=== PATIENT | female | born 1960 | race Caucasian/White ===

== ENCOUNTER → 2023-10-26 15:17 | Outpatient (REF) | payer MEDICARE, SELFPAY | LOC: HWRAD 15:17 | PROVIDERS: ATTENDING PHYSICIAN Otolaryngology; FAMILY PHYSICIAN Family Medicine | DX: H71.91 Unspecified cholesteatoma, right ear (principal) | CPT/HCPCS: 70480 ==

== ENCOUNTER → 2024-01-05 13:20 | Outpatient (REF) | payer MEDICARE, SELFPAY | LOC: RAD 13:20 | PROVIDERS: ATTENDING PHYSICIAN Nurse Practitioner Family | DX: R05.3 Chronic cough (principal) | CPT/HCPCS: 71046 ==

== ENCOUNTER → 2024-01-18 06:51 | Outpatient (REF) | payer MEDICARE, SELFPAY ==
[2024-01-18 10:08] LABS: Blood Urea Nitrogen 28 mg/dl (7-17)
== END ==
LOC: HWRAD 06:51
PROVIDERS: ATTENDING PHYSICIAN Nurse Practitioner Family; FAMILY PHYSICIAN Family Medicine
DX: R06.02 Shortness of breath (principal); R00.0 Tachycardia, unspecified
CPT/HCPCS: 36415; 71275; 82565; 84520; Q9967

== ENCOUNTER → 2024-01-20 10:39 | Outpatient (REF) | payer MEDICARE, SELFPAY | LOC: REG 10:39 | PROVIDERS: ATTENDING PHYSICIAN Nurse Practitioner Family; FAMILY PHYSICIAN Family Medicine | DX: R05.3 Chronic cough (principal); R05.9 Cough, unspecified | CPT/HCPCS: 87070; 87205 ==

== ENCOUNTER → 2024-04-25 09:10 | Outpatient (REF) | payer MEDICARE, SELFPAY | LOC: HWRCS 09:10 | PROVIDERS: ATTENDING PHYSICIAN Internal Medicine Cardiovascular Disease; FAMILY PHYSICIAN Family Medicine | DX: R06.09 Other forms of dyspnea (principal); I49.3 Ventricular premature depolarization; R00.0 Tachycardia, unspecified | CPT/HCPCS: 93306 ==

== ENCOUNTER → 2024-05-10 15:01 | Outpatient (REF) | payer MEDICARE, SELFPAY | LOC: HWWDC 15:01 | PROVIDERS: ATTENDING PHYSICIAN Family Medicine; REFERRING PHYSICIAN Obstetrics & Gynecology | DX: Z12.31 Encounter for screening mammogram for malignant neoplasm of breast (principal) | CPT/HCPCS: 77063; 77067 ==

== ENCOUNTER 2024-07-15 06:26 | Day surgery (SDC) | payer MEDICARE, SELFPAY ==
[2024-06-28 14:07] VITALS: BMI 31.2
[2024-06-28 14:36] LABS: Hematocrit 40.5 % (37.0-47.0); Hemoglobin 13.3 g/dL (12.0-16.0); Mean Corp Hgb Conc. 32.8 g/dL (33.0-37.0); Mean Corpuscular Hgb 29.2 pg (27.0-31.0); Mean Platelet Volume 10.7 fL (7.4-10.4); Platelet Count 239 10^3/uL (130-400); Red Blood Cell Count 4.55 10^6/uL (4.20-5.40); Red Cell Dist. Width 12.2 % (11.5-14.5); White Blood Cell Count 8.3 10^3/uL (4.8-10.8)
[2024-06-28 15:04] LABS: ALT (SGPT) 17 U/L (0-35); AST (SGOT) 22 U/L (14-36); Albumin 4.1 g/dl (3.5-5.0); Alkaline Phosphatase 172 U/L (38-126); Blood Urea Nitrogen 22 mg/dl (7-17); Calcium 8.9 mg/dl (8.4-10.2); Carbon Dioxide 28 mmol/L (22-30); Chloride 102 mmol/L (98-107); Estimated Creatinine Clearance 66 ml/min; Glucose 80 mg/dl (70-99); Potassium 4.1 mmol/L (3.5-5.1); Sodium 141 mmol/L (135-145); Total Bilirubin 0.1 mg/dl (0.2-1.3); Total Protein 6.6 g/dl (6.3-8.2); eGFR > 60.00
[2024-06-29 10:14] LABS: Glycohemoglobin (HgbA1c) 5.5 % (4.0-5.6)
--- NOTE | 2024-07-01 11:48 | VNURNOTE ---
Patient is scheduled for an [facility] elective R TKA on 07/15/24- she is a same day patient. Spoke with patient prior to surgery. Introduced role of [facility] liaison. Patient reports that she lives with her spouse in a MULTI story home. There is one step to
enter and a flight of steps to the second floor.
There is a powder room and recliner on the entry specialist. She currently functions independently. She has a cane and rolling walker and ice pack. She will obtain a raised toilet seat.
She has never had [facility] services.
PCP is Dr Garvin
Discussed orthopedic program and post surgical plans.
Reviewed that she will have [facility] services initially and will then start outpatient PT.
Patient selects [facility] for home care needs and will go to [facility] for outpatient PT. Outpt PT scheduled for 07/18.
Instructed patient to bring rolling walker with her day of surgery.
Patient is in agreement with plan and states that her spouse will be home with her.
[facility] referral placed in [facility].
[2024-07-09 08:48] VITALS: BMI 31.2
[2024-07-15] VITALS (14 sets, daily range): BP systolic 138–159; BP diastolic 69–90; PULSE 99; O2SAT 95; BMI 31.2
[2024-07-15] MEDS: TYLENOL 650 MG PO (07:27)
[2024-07-15] MEDS: MOBIC 15 MG PO (07:28)
[2024-07-15] MEDS: DILAUDID 0.25 MG IV ×2 (10:23→10:44)
--- NOTE | 2024-07-15 10:25 | SUR.PHASEI ---
Patient arrives in PACU reporting lower back pain and Rt knee pain, patient received spinal anesthesia. Dr Greene informed of back pain. Benton Linares RN BSN.
[2024-07-15] MEDS: DILAUDID 0.5 MG IV (10:31)
[2024-07-15] MEDS: ROXICODONE 5 MG PO ×2 (11:24→12:13)
[2024-07-15] MEDS: TORADOL 30 MG IV (12:12)
[2024-07-15] MEDS: ANCEF 5 IV (12:25)
== END 2024-07-15 13:44 | disposition home health service (06) ==
LOC: SDS 06:26
PROVIDERS: ATTENDING PHYSICIAN Specialist; FAMILY PHYSICIAN Family Medicine; REFERRING PHYSICIAN Internal Medicine Cardiovascular Disease
DX: M17.11 Unilateral primary osteoarthritis, right knee (principal)
CPT/HCPCS: 27447; 36415; 73560; 80053; 83036; 85027; 87070; 97116; 97162; C1713; C1776

== ENCOUNTER → 2025-07-01 10:04 | Outpatient (REF) | payer MEDICARE, SELFPAY | LOC: HWWDC 10:04 | PROVIDERS: ATTENDING PHYSICIAN Nurse Practitioner Family | DX: Z12.31 Encounter for screening mammogram for malignant neoplasm of breast (principal) | CPT/HCPCS: 77063; 77067 ==